=== PATIENT | female | born 1985 | race Caucasian/White ===

== ENCOUNTER 2017-10-16 11:30 | Emergency (ER) | payer MEDICAID ==
[~2017-10-16] VITALS: Ht 154.9 cm; Wt 88.5 kg
[~2017-10-16 11:30] MED LIST: ZYPR5TAB PO
--- NOTE | 2017-10-16 15:46 | PD ---
HPI Chief Complaint: Psychiatric Symptoms Time Seen by Provider: 14:46 Travel History International Travel<30 days: No Contact w/Intl Traveler<30days: No Traveled to known affect area: No History of Present Illness HPI 32-year-old female presents to the emergency room as a transfer from [facility]. Patient presented to [place] complaining of anxiety, depression, and suicidal ideation. She was seen by the physician there and medically cleared for psychiatric evaluation after having unremarkable labs. PFSH Past Medical History Anxiety: Yes Depression: Yes Diminished Hearing: No Psychiatric: Yes (doctor states possible bipolar) Social History Alcohol Use: No Tobacco Use: No Substance Use: No Allergies-Medications (Allergen,Severity, Reaction): Coded Allergies: No Known Allergies (Verified Allergy, Unknown, 10/16/17) Reported Meds & Prescriptions Reported Meds & Active Scripts Active Reported Zyprexa (Olanzapine) 5 Mg Tab 5 Mg PO HS Review of Systems Except as stated in HPI: all other systems reviewed are Neg Physical Exam Narrative GENERAL: Well-nourished, well-developed female in no acute distress. Afebrile. Ambulatory. Eating food on her hospital bed. SKIN: Focused skin assessment warm/dry. HEAD: Normocephalic. EYES: No scleral icterus. No injection or drainage. NECK: Supple, trachea midline. No JVD or lymphadenopathy. CARDIOVASCULAR: Regular rate and rhythm without murmurs, gallops, or rubs. RESPIRATORY: Breath sounds equal bilaterally. No accessory muscle use. PSYCHIATRIC: No delusional thought processes. No hallucinations. Data Data Last Documented VS Vital Signs Date Time Temp Pulse Resp B/P (MAP) Pulse Ox O2 Delivery O2 Flow Rate FiO2 10/16/17 17:42 94.5 73 18 117/56 (76) 100 Room Air Orders Orders Diet Regular Basic (10/16/17 Lunch) Diet Regular Basic (10/16/17 Dinner) Psych Screen (10/16/17 17:41) MDM Medical Decision Making Medical Screen Exam Complete: Yes Emergency Medical Condition: Yes Medical Record Reviewed: Yes Differential Diagnosis Depression, anxiety, suicidal ideation, mood disorder Narrative Course 32-year-old female presents to the emergency room as a transfer from [facility] to the ED for suicidal ideation. Patient presented to the ED complaining of suicidal ideation, depression, and anxiety. She was seen by the physician and medically cleared for psychiatric evaluation. Her labs are unremarkable. UA was non-concerning for UTI. test negative. She remains stable, eating food, resting comfortably, calm, cooperative in her room. She is still medically cleared. Condition: Stable Sara Philippe Oct 16, 2017 15:46
[2017-10-16 17:42] VITALS: BP 117/56; PULSE 73; RESP 18; TEMP 94.5; O2SAT 100
--- NOTE | 2017-10-16 19:56 | PD ---
History of Present Illness Chief Complaint: Psychiatric Symptoms Time Seen by Provider: 19:30 Travel History International Travel<30 Days: No Contact w/Intl Traveler<30days: No Known affected area: No Legal Status Legal Status: Caraballo Act Caraballo Act Signed By: Signed by [facility] Provider, Ann Hernández MD. Caraballo Act Comment: Signed by [facility] Provider, Ann Hernández MD. History of Present Illness: History of Present Illness HPI 32-year-old female with reported history of bipolar disorder who presents presents to the emergency room as a transfer from [facility]. Patient presented to [facility] emergency department on a voluntary basis complaining of anxiety, depression, and suicidal ideation. She was seen by the physician there and medically cleared for psychiatric evaluation. She was placed under Caraballo act by ED physician. Seen. EMR reviewed. No previous contact with [facility] psychiatry Department. Patient reports that she began psychiatric treatment approximately [address] Dianne Castano. She re[ported experiencing anxiety, racing thoughts, suicidal thoughts, sleeping difficulties. Her outpatient psychiatrist initiated treatment with Geodon but felt that it was not helping. Geodon was changed to Zyprexa 5 mg at bedtime 4 days ago. For the past 4 days the patient reports that she has not been sleeping as well, and has been feeling more anxious. This morning she reports she had an anxiety attack and presented to emergency department. The patient has been monitored in secure environment and she has presented no behavioral dysregulation and no suicidality. She is alert, oriented, engaging and cooperative. Her speech is clear, logical , goal-directed. There is no pressure of speech. There is no evidence of any thought process or thought content disturbance. No hallucinations, no delusions , no paranoia. There is no aislinn or hypomania evident. She reports feeling calmer since being here in the emergency department. Denies current suicidal or homicidal ideation. Admits to fleeting thoughts of suicide with no plan. Denies any previous suicidal attempt.. Only significant stressor reported is her lost his job approximately one month ago. She reports medication compliance. Denies any substance use. She has family support and her parents are driving from [place] today to assist in the care of the patient and her family. Telephone call to patient's outpatient psychiatrist , John Morgan at [phone] . Unable to leave message. [facility] Past Medical History Medical History: Denies Significant Hx Anxiety: Yes Depression: Yes Patient Takes Glucophage: No Diminished Hearing: No Psychiatric: Yes (doctor states possible bipolar) ?: Not LMP: Jul 2017 per pt - Hx PCOS. : 4 Para: 3 Miscarriage: 1 : 0 Ovarian Cysts: Yes (PCOS) Past Surgical History Surgical History: No Previous Surgery Psychiatric History Psychiatric History Hx Psychiatric Treatment: At age 17 or 18 stated that she was admitted to an inpatient setting x 1 week. She stated back then she told her mother she would harm herself. Her son was newly born. She took medication for approximately 4 weeks. No hx of suicdal attempts. Recently began outpatietn tretametn and medications. Patient stated recently began seeing her eldest son's psychiatric provider. (Her son is being treated for ADHD.) She stated that she stated that she has been having highs and lows. Stated that approx a year ago began to have issues. She stated that Dianne Toney with [facility] in [place], [place], Dx'd her with Bipolar Disorder Type II. She stated that she was started on Geodon. But that it caused her to not be able to sleep and began having racing thoughts and increased anxiety. So she stopped the Geodon. Then pm she began a prescription for Zyprexa. She is not sure it is working properly. History of Inpatient Treatment: Yes Guns or firearms in home: No Social History Patient has been twice. Her first marriage ended when her 7 years ago. She is again lives with her and their 4 children ages 14 years, 12 years, 10 years, and his 10-year-old child as well. 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 Hx Alcohol Use: No (Patient denies.) Hx Tobacco Use: No (Patient denies.) Hx Substance Use: No (Patient denies. ) Substance Use Type: Benzos (Valium,Xanax) Hx of Substance Use Treatment: No Allergies-Medications (Allergen,Severity, Reaction): Coded Allergies: No Known Allergies (Verified Allergy, Unknown, 10/16/17) Reported Meds & Prescriptions Reported Meds & Active Scripts Active Reported Zyprexa (Olanzapine) 5 Mg Tab 5 Mg PO HS Review of Systems Except as stated in HPI: all other systems reviewed are Neg Mental Status Examination Appearance: Appropriate (maintaining hygiene.) Consciousness: Alert Orientation: x4 Motor Activity: Normal gait Speech: Unremarkable Language: Adequate Fund of Knowledge: Adequate Attention and Concentration: Adequate Memory: Unremarkable Mood: Appropriate, Anxious Affect: Appropriate Thought Process & Associations: Intact, Logical, Goal directed Thought Content: Appropriate Hallucination Type: None Delusion Type: None Suicidal Ideation: No Suicidal Plan: No Suicidal Intention: No Homicidal Ideation: No Homicidal Plan: No Homicidal Intention: No Insight: Fair Judgment: Adequate MDM Medical Decision Making Medical Record Reviewed: Yes Assessment/Plan 32-year-old female with history of bipolar disorder presents to the emergency room as a transfer from [facility]. Patient presented to [facility] complaining of anxiety, depression, and suicidal ideation. She was seen by the physician there and medically cleared , placed under Caraballo act and transferred to [facility]. Patient has been monitored and has presented no suicidality and has been appropriate with no evidence of any aislinn or hypomania. Patient does not meet criteria for Caraballo act. She is juliana for safety. He is cognitively intact. Has adequate support at home and wishes to be discharged. She agrees to increase her Zyprexa to 7.5 mg po q day and a trial of Vistaril for anxiety. She will follow up with her outpatient psychiatrist on Thursday. I attempted to contact her outpatient psychiatrist Dr. Castano but was unable to contact her. Orders Orders Diet Regular Basic (10/16/17 Lunch) Diet Regular Basic (10/16/17 Dinner) Psych Screen (10/16/17 17:41) Results Vital Signs Date Time Temp Pulse Resp B/P (MAP) Pulse Ox O2 Delivery O2 Flow Rate FiO2 10/16/17 17:42 94.5 73 18 117/56 (76) 100 Room Air Diagnosis Primary Impression: Bipolar disorder Psychiatrically Cleared: Yes Med/ Other Pt Specific Info: Prescription(s) given Prescriptions Hydroxyzine Pamoate (Vistaril) 25 Mg Cap 25 MG PO TID Y for ANXIETY, #30 CAP 0 Refills Prov: Lucy Calvodys Diane Shaw DENTAL AMALGAM PROCESSOR 10/16/17 Olanzapine (Zyprexa) 7.5 Mg Tab 7.5 MG PO DAILY for Anxiety, #30 TAB 0 Refills Prov: CalvoHaylee GALLOWAYP 10/16/17 Disposition: 01 DISCHARGE HOME Condition: Stable Problem Qualifiers Primary Impression: Bipolar disorder Qualified Codes: F31.61 - Bipolar disorder, current episode mixed, mild Haylee CalvoP Oct 16, 2017 19:56
[2017-10-16] MEDS ORDERED: ZYPR7.5T PO (19:58)
[2017-10-16] MEDS ORDERED: VIST25CA PO (19:59)
--- NOTE | 2017-10-16 21:42 | PD ---
Physical Exam Date Seen by Provider: Oct 16, 2017 Time Seen by Provider: 21:41 Data Data Last Documented VS Vital Signs Date Time Temp Pulse Resp B/P (MAP) Pulse Ox O2 Delivery O2 Flow Rate FiO2 10/16/17 20:11 10/16/17 17:42 94.5 73 18 100 Room Air Orders Orders Diet Regular Basic (10/16/17 Lunch) Diet Regular Basic (10/16/17 Dinner) Psych Screen (10/16/17 17:41) Ed Discharge Order (10/16/17 21:40) MDM Medical Record Reviewed: Yes Supervised Visit with ROSENDO: No Differential Diagnosis . Narrative Course The patient has been evaluated by the psych nurse practitioner. Her Caraballo act has been lifted. That are not a threat to himself or others. They do not warrant inpatient treatment. Given outpatient treatment information and discharged in stable condition. Diagnosis Primary Impression: Bipolar disorder Qualified Codes: F31.61 - Bipolar disorder, current episode mixed, mild Patient Instructions: General Instructions, Suicide Prevention for Adults (ED) Departure Forms: Tests/Procedures Additional Instruction: PLEASE RETURN TO EMERGENCY DEPARTMENT FOR ANY NEW OR WORSENING SYMPTOMS UPTO AND INCLUDING SUICIDAL OR HOMICIDAL IDEATIONS. Scripts Hydroxyzine Pamoate (Vistaril) 25 Mg Cap 25 MG PO TID Y for ANXIETY, #30 CAP 0 Refills Prov: Calvo,Haylee Diane Squires BOWL ATTENDANT 10/16/17 Olanzapine (Zyprexa) 7.5 Mg Tab 7.5 MG PO DAILY for Anxiety, #30 TAB 0 Refills Prov: Calvo,Haylee Diane Squires BOWL ATTENDANT 10/16/17 Disposition: 01 DISCHARGE HOME Condition: Stable Desean Evans Oct 16, 2017 21:42
== END 2017-10-16 21:05 | disposition home or self-care (01) ==
LOC: NEPJ 11:30
DX: F31.61 Bipolar disorder, current episode mixed, mild (principal); N39.0 Urinary tract infection, site not specified; B96.89 Other specified bacterial agents as the cause of diseases classified elsewhere; Z79.899 Other long term (current) drug therapy
CPT/HCPCS: 80053; 80307; 81001; 84702; 85025; 87086; 99283; 99284